=== PATIENT | female | born 1955 | race Caucasian/White ===

== ENCOUNTER → 2017-02-02 | Outpatient (CLI) | payer MEDICARE, BC ==
[2017-02-02 18:01] LABS: ALT 29 U/L (9-52); AST 29 U/L (14-36); Alkaline Phosphatase 97 U/L (38-126); Anion Gap 10 mmol/L; Blood Urea Nitrogen 10 mg/dL (7-17); Calcium 10.5 mg/dL (8.4-10.2); Carbon Dioxide 28 mmol/L (22-30); Chloride 103 mmol/L (98-107); Cholesterol 161 mg/dL (<200); Glucose 103 mg/dL (74-99); HDL Cholesterol 45 mg/dL (40-60); Non-African American GFR(MDRD) >60 (>60 ml/min/1.73 sqM); Potassium 4.3 mmol/L (3.5-5.1); Sodium 141 mmol/L (137-145); Total Bilirubin 0.6 mg/dL (0.2-1.3); Total Protein 7.9 g/dL (6.3-8.2); Triglycerides 280 mg/dL (<150)
== END | disposition home or self-care (01) ==
LOC: LABWHC1 17:23
PROVIDERS: ATTEND Internal Medicine Clinical Cardiac Electrophysiology
DX: E78.2 Mixed hyperlipidemia (principal)
CPT/HCPCS: 36415; 80053; 80061; 84443

== ENCOUNTER → 2017-03-23 | Outpatient (CLI) | payer MEDICARE, BC ==
[2017-03-23 11:52] LABS: Basophils # (A) 0.1 k/uL (0-0.2); Basophils % (A) 1 %; CH 32.5; CHCM 34.4; Eosinophils # (A) 0.2 k/uL (0-0.7); Eosinophils % (A) 2 %; HCT 46.7 % (34.0-46.0); HDW 2.55; HGB 15.8 gm/dL (11.4-16.0); Luc # (Auto) 0.17; Luc % (Auto) 2; Lymphocytes # (A) 1.2 k/uL (1.0-4.8); Lymphocytes % (A) 16 %; MCHC 33.7 g/dL (31.0-37.0); MCV 94.8 fL (80.0-100.0); Mean Platelet Volume 7.5; Monocytes # (A) 0.5 k/uL (0-1.0); Monocytes % (A) 7 %; Neutrophils # (A) 5.4 k/uL (1.3-7.7); Neutrophils % (A) 72 %; RBC 4.93 m/uL (3.80-5.40); RDW 14.1 % (11.5-15.5); WBC 7.6 k/uL (3.8-10.6); WBC (Perox) 7.39
[2017-03-23 12:57] LABS: Anion Gap 9 mmol/L; Blood Urea Nitrogen 11 mg/dL (7-17); Calcium 10.5 mg/dL (8.4-10.2); Carbon Dioxide 28 mmol/L (22-30); Chloride 102 mmol/L (98-107); Glucose 85 mg/dL (74-99); Non-African American GFR(MDRD) >60 (>60 ml/min/1.73 sqM); Potassium 4.6 mmol/L (3.5-5.1); Sodium 139 mmol/L (137-145)
== END | disposition home or self-care (01) ==
LOC: LABWHC1 11:08
PROVIDERS: ATTEND Internal Medicine Clinical Cardiac Electrophysiology
DX: I47.1 Supraventricular tachycardia (principal)
CPT/HCPCS: 80048; 85025

== ENCOUNTER → 2017-04-04 | Day surgery (SDC) | payer MEDICARE, BC ==
[2017-03-29 11:50] VITALS: BMI 25.6
[~2017-04-04] MED LIST: LACTATED RINGERS 1,000 ML IV SCH; PROPOFOL 10 MG/ML 20 ML VIAL IV ONE; SODIUM CHLORIDE 0.9% 1,000 ML IV SCH; SODIUM CHLORIDE 0.9% 500 ML IV ONE
[2017-04-04 08:02] VITALS: RESP 16
[2017-04-04 10:02] VITALS: TEMP 97.8
[2017-04-04 10:04] VITALS: PULSE 64
[2017-04-04 10:05] VITALS: BP 136/65
--- NOTE | 2017-04-04 20:33 | CE ---
Jada Sorenson is a 61-year-old female who non-ischemic cardiomyopathy, status post biventricular ICD implant. She has a Medtronic ICD. Her battery longevity is estimated at about 1.6 years, ranging from 1.1 to 2.1 years. She has a Viva xt bundle tier and labeler-d serial number [id number]. The atrial pacing impedance 437 ohms, RV bipolar impedance 437 ohms, LV pacing from LV tip to RV coil 608 ohms, RV defib is 47 ohms, SVC defib is 58 ohms. P waves 2.6 mV. R waves are greater than 20 mV. The RV threshold was 1.75 v at 0.5 ms. The LV threshold was elevated at 2.75 v at 1 ms. The pulse amplitudes and duration were appropriately programmed (x2 from baseline). Defibrillation level testing was performed. A shock and T-wave protocol was used to induce ventricular fibrillation. This was adequately and appropriately detected at least sensitivity and successfully internally defibrillated with a 10-joule shock. No post-shock noise. Charge time of 2 seconds and shock impedance of 48 ohms. The device was then programmed to 3 zones of therapy with monitor zone at 150 beats per zone, VT zone at 176 beats per minute, and VR zone at 210 beats per minutes. Appropriate anti-tachycardia pacing, cardioversion and defibrillation were programmed. Long detection times were programmed to minimize inappropriate ICD shocks. RESULT: 1. ICD interrogation reveals elevated LV thresholds. 2. DFT at or below 10 joules. ICD appropriately reprogrammed. PLAN: Four-monthly followup in the ICD clinic. Six-monthly followup with Dr. Watts. [facility]
== END | disposition home or self-care (01) ==
LOC: CATHEP 06:22
PROVIDERS: ATTEND Internal Medicine Clinical Cardiac Electrophysiology
DX: I25.5 Ischemic cardiomyopathy (principal); Z95.0 Presence of cardiac pacemaker; I25.10 Atherosclerotic heart disease of native coronary artery without angina pectoris; F17.200 Nicotine dependence, unspecified, uncomplicated; Z79.899 Other long term (current) drug therapy
CPT/HCPCS: 93642; J2704

== ENCOUNTER → 2019-07-18 | Outpatient (CLI) | payer MEDICARE ==
[2019-07-18 16:50] LABS: HCT 41.9 % (34.0-46.0); HGB 14.3 gm/dL (11.4-16.0); MCH 32.3 pg (25.0-35.0); MCHC 34.1 g/dL (31.0-37.0); MCV 94.7 fL (80.0-100.0); Mean Platelet Volume 6.4; Platelet Count 316 k/uL (150-450); RBC 4.43 m/uL (3.80-5.40); RDW 12.1 % (11.5-15.5); WBC 6.6 k/uL (3.8-10.6)
[2019-07-18 16:58] LABS: Potassium 3.8 mmol/L (3.5-5.1)
== END ==
LOC: LABPAT 16:17
PROVIDERS: ATTEND Internal Medicine Clinical Cardiac Electrophysiology
DX: Z01.812 Encounter for preprocedural laboratory examination (principal); I42.8 Other cardiomyopathies; I44.7 Left bundle-branch block, unspecified
CPT/HCPCS: 36415; 80051; 82565; 82947; 84520; 85027

== ENCOUNTER 2019-07-24 08:09 | Day surgery (SDC) | payer BC, MEDICARE ==
[2019-07-18 10:53] VITALS: BMI 24.4
[~2019-07-24 08:09] MED LIST changes: +HYDROmorphone 0.5 MG/0.5 ML SYRINGE IVP PRN; +MIDAZOLAM 2 MG/2 ML VIAL IV PRN; -PROPOFOL 10 MG/ML 20 ML VIAL IV ONE; -SODIUM CHLORIDE 0.9% 500 ML IV ONE; +ceFAZolin 1,000 MG in SODIUM CHLORIDE 0.9% IRRIGATIO 250 ML IRRIGATION ONE
[2019-07-24] MEDS ORDERED: SODIUM CHLORIDE 0.9% 1,000 ML IV ONE (09:06)
[2019-07-24] MEDS ORDERED: PROPOFOL 10 MG/ML 20 ML VIAL IV ONE (10:53)
[2019-07-24] MEDS ORDERED: fentaNYL (PF) 50 MCG/ML 2 ML AMP ONE (10:53)
[2019-07-24] MEDS ORDERED: MIDAZOLAM 2 MG/2 ML VIAL ONE (10:53)
--- NOTE | 2019-07-24 11:10 | P.PCN ---
Preoperative Diagnosis: Diagnosis: Congestive heart failure status post bi-V ICD Cinefluoroscopy of the leads was performed Screw-in atrial lead and right atrial appendage, stable position, no fractures noted Dual coil ICD lead screw-in, low RV septum, stable, no fractures LV lead and lateral vein, stable, no fractures or breaks
[2019-07-24] MEDS ORDERED: LIDOCAINE 1% INJ 10MG/ML (20 ML MDV) ONE (11:13)
[2019-07-24] MEDS ORDERED: LIDOCAINE 1% INJ 10MG/ML (20 ML MDV) SQ ONE (11:31)
--- NOTE | 2019-07-24 12:35 | P.PCN ---
Preoperative Diagnosis: Diagnosis: Cardiomyopathy status post biventricular ICD, NSVT Procedure: Defibrillation level testing Under anesthesia, a shock on T protocol was used to induce ventricular fibrillation This was appropriately and adequately sensed at the activity with one dropout Successfully defibrillated with a 10 J shock, charge time was 2 seconds, impedance was 52 ohms, no post shock noise Device was then programmed to detect VT at 176 beats and VF at 270 bpm Appropriate antitachycardia pacing, cardioversion and defibrillation programmed Sensitivity reprogrammed to 0.3 mV
[2019-07-24] MEDS ORDERED: HYDROcodone/APAP 5-325MG 1 EACH TAB PO PRN (12:36)
[2019-07-24] MEDS ORDERED: ACETAMINOPHEN TAB 325 MG TAB PO PRN (12:36)
--- NOTE | 2019-07-24 12:47 | P.PRLE ---
RE: Jada Sorenson Dear Jose Juan Jada underwent a biventricular ICD generator change successfully Her medications remain unchanged and she will continue to follow-up with you and I will see her again in the device clinic within a week Thank you for entrusting me with the care of the patient Warm regards Sincerely Buck Watts
[2019-07-24] MEDS ORDERED: ACETAMINOPHEN IV (For NPO) 1,000 MG in EMPTY BAG 1 BAG IVPB ONE (13:00)
[2019-07-24] MEDS: SODIUM CHLORIDE 0.9% 1,000 ML IV SCH (13:05)
[2019-07-24] MEDS ORDERED: CALCIUM CARBONATE 500 MG CHEWABLE PO PRN (20:08)
[2019-07-24] MEDS: FAMOTIDINE 20 MG TAB PO SCH (20:43)
--- NOTE | 2019-07-24 23:02 | PCN ---
PROCEDURE NOTE Jada Sorenson is a 63-year-old female with a history of nonischemic cardiomyopathy who underwent biventricular ICD implantation several years back. The device is at [employer]. This resulted in improvement in LV systolic function and heart failure status. She was brought in for biventricular ICD generator change and testing. Patient was brought to the EP lab in a fasting state. Written informed consent was obtained prior to the procedure. The left shoulder area was prepped and draped as per protocol. Lidocaine 1% was used for local anesthesia. An incision was made directly over the previous surgical site and carried down to the level of the pectoralis muscle. A subfascial pocket was made. Hemostasis was assured. The chronic generator was explanted. The new generator was implanted. Leads were interrogated. Partial capsulectomy was performed. Hemostasis was assured. Wound was closed in 3 layers and dressed per protocol. The chronic old biventricular ICD that was removed was a Medtronic, product number [id number], serial number [id number]. The new generator implanted was a Medtronic Amplia MRI, model number [id number], serial number [id number]. The leads and the generator were then placed in the subfascial pocket and the wound was closed in 3 layers and dressed per protocol. Later, DFT testing was performed. DFT was at or below 10 joules. Please see separate dictation for that. The patient tolerated the procedure well without any acute complications. RESULT: Successful biventricular ICD generator change. MMBRANDIL / IJN: [id number] /
--- NOTE | 2019-07-24 23:08 | PCN ---
PROCEDURE NOTE July 24, 2019 To: Dr. Paula Schroeder Re: Jada Sorenson (51) Dear Paula, Jada Delta underwent a successful biventricular ICD generator change today. Her medications will remain the same. She will continue to follow up with you as well as in the device clinic as before. Thank you for entrusting me with the care of your patient. Warm regards. Sincerely, Buck Watts M.D. LISSETH / LUCIANO: [id number] /
[2019-07-25] MEDS: SODIUM CHLORIDE 0.9% 1,000 ML IV SCH (02:31)
[2019-07-25 04:23] VITALS: RESP 18
[2019-07-25] MEDS: FAMOTIDINE 20 MG TAB PO SCH (07:50)
--- NOTE | 2019-07-25 07:56 | P.DS ---
Providers Attending physician: Buck Watts Primary care physician: [facility] Course: Patient status post ICD generator change yesterday. No hematoma no swelling minimal discomfort No dizziness lightheadedness no chest pain no shortness of breath no orthopnea On examination she is afebrile and 7.8F pulse rate in the 60s normal respirations blood pressure 120/67 mmHg Soft abdomen nontender Normal heart sounds no murmurs or gallop No JVD Clear breath sounds no rhonchi no crackles No lower extremity edema Impression History of nonischemic cardiomyopathy with improvement with biventricular pacing On appropriate medical treatment, continue same medications without any changes Plan Discharge home after completion of IV antibiotics and follow-up in the device clinic Follow-up with Dr. Watts within 3-4 months Plan - Discharge Summary Discharge Rx Participant: No New Discharge Prescriptions: No Action Aspirin 81 mg PO QAM Spironolactone [Aldactone] 25 mg PO QAM Losartan [Cozaar] 25 mg PO QAM Atorvastatin [Lipitor] 10 mg PO QAM Furosemide [Lasix] 40 mg PO QAM Metoprolol Succinate [Toprol XL] 200 mg PO DAILY Discharge Medication List Aspirin 81 mg PO QAM 06/17/14 [History] Losartan [Cozaar] 25 mg PO QAM 06/17/14 [History] Spironolactone [Aldactone] 25 mg PO QAM 06/17/14 [History] Atorvastatin [Lipitor] 10 mg PO QAM 08/29/14 [History] Furosemide [Lasix] 40 mg PO QAM 08/29/14 [History] Metoprolol Succinate [Toprol XL] 200 mg PO DAILY 03/29/17 [History] Follow up Appointment(s)/Referral(s): Buck Watts MD [STAFF PHYSICIAN] - 1 Week (Follow-up in the device clinic in one week follow up with Dr. Watts/Susy Metcalf/Anabel Rodriges as previously scheduled or in 3 months) Activity/Diet/Wound Care/Special Instructions: PATIENT EDUCATION MATERIAL Instructions following a heart rhythm device generator implant. 1. Keep dressing DRY for ONE week. You may cover the area with Saran or Cling Wrap, prior to a shower. 2. The dressing will be removed after one week in the Device Clinic @ [facility]. Absorbable sutures were used to close the wound. 3. Avoid raising the [left] arm above the shoulder level. [1 week restriction] 4. Avoid arm movements, like backscratching, rubbing the head, or pulling on a cord. (1 weeks restriction) 5. Gentle range of motion movements of the shoulder, closest to the incision should be performed to avoid a frozen shoulder. (Pendulum exercises of the shoulder) 6. The opposite arm may be used freely. 7. Avoid driving for 7 days. 8. Avoid activities such as golfing, swimming, weed whacking, lifting more than 10 pounds weight, bowling, gymnastics and weight training/lifting. (2 weeks restriction) 9. Activities such as wood chopping with an axe, pull-ups in the gymnasium, power lifting, arc-welding, being close to home induction cooktops will always be a problem. In case of any problems, please call [facility], [place], @ [phone], Attention: Device Clinic Continue all cardiac medications as previously prescribed Discharge Disposition: HOME SELF-CARE
[2019-07-25] MEDS ORDERED: LOSARTAN 25 MG TAB PO SCH (09:00)
[2019-07-25] MEDS ORDERED: ATORVASTATIN 10 MG TAB PO SCH (09:00)
[2019-07-25] MEDS ORDERED: SPIRONOLACTONE 25 MG TAB PO SCH (09:00)
[2019-07-25] MEDS ORDERED: FUROSEMIDE 40 MG TAB PO SCH (09:00)
[2019-07-25] MEDS ORDERED: ASPIRIN 81 MG PO SCH (09:00)
[2019-07-25] MEDS ORDERED: METOPROLOL SUCCINATE (ER) 100 MG TAB.ER.24H PO SCH (09:00)
[2019-07-25 11:32] VITALS: BP 128/77; PULSE 58; TEMP 97.3
== END 2019-07-25 12:20 | disposition home or self-care (01) ==
LOC: CATHEP 08:09 → 1SOBS 12:23 → CATHEP 07-25 12:20
PROVIDERS: ATTEND Internal Medicine Clinical Cardiac Electrophysiology
DX: Z45.02 Encounter for adjustment and management of automatic implantable cardiac defibrillator (principal); I42.8 Other cardiomyopathies; I50.22 Chronic systolic (congestive) heart failure; I44.7 Left bundle-branch block, unspecified; F17.210 Nicotine dependence, cigarettes, uncomplicated; E78.5 Hyperlipidemia, unspecified; Z79.82 Long term (current) use of aspirin; Z79.899 Other long term (current) drug therapy
CPT/HCPCS: 93641; 33264; C1882; J2250; J0690 ×2; J2001; J3010; J0131; J2704; 12020